=== PATIENT | male | born 2000 | race Caucasian/White ===

== ENCOUNTER 2023-12-02 11:05 | Emergency (ER) | payer OTHER, SELFPAY ==
[2023-12-02 11:07] VITALS: BP 141/79; PULSE 72; RESP 20; TEMP 36.8; O2SAT 100; BMI 25.7
--- NOTE | 2023-12-02 11:12 | XR_ITS ---
The [address] [address] Patient Name: LARA LOBO MRN: [id number] date: 2000 Sex: M Assigned Patient Location: ER Current Patient Location: ER Accession/Order Number: [id number] Exam Date: 12/02/2023 11:16 Report Date: 12/02/2023 11:37 At the request of: CARLOS FRANCIS Procedure: XR hand LT min 3V PROCEDURE: XR hand LT min 3V HISTORY: Rule out foreign body, index PIP extensor side COMPARISON: None. FINDINGS: BONES:No fracture, acute abnormality, or significant arthropathy. SOFT TISSUES:Soft tissue swelling in region of second digit proximal interphalangeal joint. No radiopaque foreign body. EFFUSION:None visible. OTHER: Negative. XR/XR hand LT min 3V IMPRESSION: 1. No radiopaque foreign body. 2. No appreciable bone involvement. Electronically authenticated by: ANETA HERNANDEZ Date: 12/02/2023 11:37
--- NOTE | 2023-12-02 11:20 | ED_ITS ---
HPI - Wound/Laceration General Chief Complaint: Wound/Laceration Stated Complaint: UPPER EXTREMITY INJURY L HAND Time Seen by Provider: 12/02/23 11:06 Source: patient Mode of arrival: walk-in Limitations: no limitations History of Present Illness HPI narrative: 23-year-old male presents for laceration to his left index finger. It was sustained on a thread grinder tool and happened just before coming into the emergency depar tme. Last tetanus shot was 3 years ago. It was sustained on the left index finger on the extensor side of the PIP. He does not complain of any pain or weakness or numbness. Related Data Home Medications Medication Instructions Recorded Confirmed No Known Home Medications 12/02/23 12/02/23 Allergies Allergy/AdvReac Type Severity Reaction Status Date / Time No Known Drug Allergies Allergy Verified 12/02/23 11:11 Review of Systems ROS Narrative A ten point review of systems is negative except as noted above. PFSH PFS Social History Smoking status: Never smoker Exam Narrative Exam Narrative: Nurses note and vital signs reviewed and patient is not hypoxic. General: The patient appears well and in no apparent distress. Patient is resting comfortably on cart. Skin: Warm, dry, no pallor noted. There is no rash noted. Head: Normocephalic, atraumatic Eye: Normal conjunctiva, no drainage Ears, Nose, Mouth, and Throat: oral mucosa is moist. Nares patent. Cardiovascular: Regular Rate and Rhythm Respiratory: Patient is in no distress, no accessory muscle use, lungs are clear to auscultation, no wheezing, rales or rhonchi GI: Soft and nontender Musculoskeletal: 1.5 cm linear laceration on the left index finger, PIP extensor side. DIP and PIP have full range of motion. Sensation intact. No other wounds are present and no obvious foreign body present. Neurological: A&O, normal speech Psychiatric: Cooperative Constitutional Vital Signs, click to edit/add: Last Vital Signs Temp 98.2 F 12/02/23 11:07 Pulse 72 12/02/23 11:07 Resp 20 12/02/23 11:07 BP 141/79 12/02/23 11:07 Pulse Ox 100 12/02/23 11:07 Course Vital Signs Vital signs: Vital Signs Temperature 98.2 F 12/02/23 11:07 Pulse Rate 72 12/02/23 11:07 Respiratory Rate 20 12/02/23 11:07 Blood Pressure 141/79 12/02/23 11:07 Pulse Oximetry 100 12/02/23 11:07 Temperature 98.2 F 12/02/23 11:07 Pulse Rate 72 12/02/23 11:07 Respiratory Rate 20 12/02/23 11:07 Blood Pressure 141/79 12/02/23 11:07 Pulse Oximetry 100 12/02/23 11:07 MDM - Wound/Laceration MDM Narrative Medical decision making narrative: The final The following procedure was performed by me. Local infiltration was carried out with 1% lidocaine resulting in complete skin anesthesia. The area was prepped with Betadine x 3 and draped sterilely. It was explored for foreign bodies and none were found. The wound was then closed with two 5-0 Ethilon sutures resulting in good skin reapproximation and no complications. He tolerated the procedure well. Sutures are to be removed in 1 week. Splint applied. Application checked by me and found to be appropriate, he is neurovascularly intact. No evidence of foreign body. Treatment diagnosis and follow-up were discussed with the patient. Differential Diagnosis Differential diagnosis: Likely laceration and other (Foreign body) Imaging Data Hand x-ray: Radiologist's impression: ITS Impressions Hand X-Ray 12/02/23 11:12 IMPRESSION: 1. No radiopaque foreign body. 2. No appreciable bone involvement. Electronically authenticated by: ANETA HERNANDEZ Date: 12/02/2023 11:37 Discharge Plan Discharge Chief Complaint: Wound/Laceration Clinical Impression: Finger laceration Patient Disposition: Home, Self-Care Time of Disposition Decision: 11:43 Condition: Good Mode of Transportation: Private Vehicle Prescriptions / Home Meds: No Action No Known Home Medications Instructions: Finger Laceration (ED) Additional Instructions: Sutures to be removed in a week. Wear splints at all times until then. Stand Alone Forms: Portal Instructions Referrals: ROQUE JOHNSON [Primary Care Provider] - 1 week
[2023-12-02] MEDS: LIDOCAINE HCL 1% 100 MG/10 ML MDV INJ (11:22)
== END 2023-12-02 12:00 | disposition home or self-care (01) ==
PROVIDERS: Emergency Provider Emergency Medicine; PCP Family Medicine
DX: S61.211A Laceration without foreign body of left index finger without damage to nail, initial encounter (principal); W29.8XXA Contact with other powered hand tools and household machinery, initial encounter
CPT/HCPCS: 12001; 73130; 99283